=== PATIENT | female | born 1985 | race Caucasian/White ===

== ENCOUNTER 2018-03-31 09:32 | Emergency (ER) | payer OTHER ==
--- NOTE | 2018-03-31 10:03 | ED ---
Syncope/Near Syncope - HPI Summary HPI Summary: This pt is a 32 y/o female presenting to [facility] for a syncopal episode today. Pt reports she had woken up this morning and had a leg cramp that she was massaging. She notes that she got up from bed to get a drink and felt dizzy and lightheaded on her way to the kitchen. Pt states she opened the fridge, syncopized, and woke up next to the fridge a couple of seconds later on the floor. Denies blurry vision, neck pain, headache, chest pain, SOB after syncopal episode. She felt shaky and her hands were cold post syncopal episode. Currently notes she is anxious. Pt has syncopized once before when she was a teen. No PMHx. Denies tobacco or drug use. He admits to rare alcohol use. LMP: has nexplanon, has not had period in 1 year. - History Of Current Complaint Chief Complaint: EDSyncope Time Seen by Provider: 03/31/18 09:43 Hx Obtained From: Patient Onset/Duration: Sudden Onset, Resolved Timing: Seconds - a couple of seconds Activity At Onset: At Rest Aggravating Factor(s): Nothing Alleviating Factor(s): Spontaneous Resolution Associated Signs And Symptoms: Dizzy, Lightheadedness, Other - POS: shaky post syncope - Allergies/Home Medications Allergies/Adverse Reactions: Allergies Allergy/AdvReac Type Severity Reaction Status Date / Time No Known Allergies Allergy Verified 03/31/18 09:51 Home Medications: Home Medications Multivitamin with Minerals [One Daily Complete] 1 tab PO DAILY 03/31/18 [ History Confirmed 03/31/18] PMH/Surg Hx/FS Hx/Imm Hx Endocrine/Hematology History: Denies: Hx Diabetes Cardiovascular History: Denies: Hx Hypertension Neurological History: Denies: Hx Seizures - Surgical History Surgery Procedure, Year, and Place: wisdom teeth extraction. benign mass removed from breast Infectious Disease History: Yes Infectious Disease History: Denies: Traveled Outside the [place] in Last 30 Days - Family History Known Family History: Positive: Diabetes Family History: Mother with breast CA - Social History Alcohol Use: Rare Substance Use Type: Reports: None Smoking Status (MU): Never Smoked Tobacco Review of Systems Negative: Fever, Chills Negative: Blurred Vision Negative: Chest Pain Negative: Shortness Of Breath Negative: Other - neck pain Neurological: Other - POS: dizziness prior to syncope, shaky post syncope Positive: Syncope. Negative: Headache Positive: Anxious All Other Systems Reviewed And Are Negative: Yes Physical Exam - Summary Physical Exam Summary: VITAL SIGNS: Reviewed. GENERAL: Patient is a well-developed and nourished female who is lying comfortable in the stretcher. Patient is not in any acute respiratory distress. HEAD AND FACE: No signs of trauma. No ecchymosis, hematomas or skull depressions. No sinus tenderness. EYES: PERRLA, EOMI x 2, No injected conjunctiva, no nystagmus. EARS: Hearing grossly intact. Ear canals and tympanic membranes are within normal limits. MOUTH: Oropharynx within normal limits. NECK: Supple, trachea is midline, no adenopathy, no JVD, no carotid bruit, no c- spine tenderness, neck with full ROM. CHEST: Symmetric, no tenderness at palpation LUNGS: Clear to auscultation bilaterally. No wheezing or crackles. CVS: Regular rate and rhythm, S1 and S2 present, no murmurs or gallops appreciated. ABDOMEN: Soft, non-tender. No signs of distention. No rebound, no guarding, and no masses palpated. Bowel sounds are normal. EXTREMITIES: FROM in all major joints, no edema, no cyanosis or clubbing. NEURO: Alert and oriented x 3. No acute neurological deficits. Speech is normal and follows commands. SKIN: Dry and warm Triage Information Reviewed: Yes Vital Signs On Initial Exam: Initial Vitals Temp Pulse Resp BP Pulse Ox 97.9 F 97 18 145/83 100 03/31/18 09:39 03/31/18 09:39 03/31/18 09:39 03/31/18 09:39 03/31/18 09:39 Vital Signs Reviewed: Yes Diagnostics - Vital Signs Vital Signs Temp Pulse Resp BP Pulse Ox 03/31/18 10:00 77 16 100 03/31/18 09:51 87 13 129/90 100 03/31/18 09:50 94 129/90 03/31/18 09:49 86 17 133/82 100 03/31/18 09:48 88 133/82 03/31/18 09:42 89 145/83 100 03/31/18 09:39 97.9 F 97 18 145/83 100 - Laboratory Result Diagrams: 03/31/18 10:01 03/31/18 10:01 Lab Statement: Any lab studies that have been ordered have been reviewed, and results considered in the medical decision making process. - Radiology Chest XR Radiology Interpretation Completed By: Radiologist Summary of Radiographic Findings: IMPRESSION: No active cardiopulmonary disease. Dr. Tomlinson has reviewed this report. - EKG 10:30 Cardiac Rate: NL - at 82 bpm EKG Rhythm: Sinus Rhythm Summary of EKG Findings: No ST elevations. T wave inversion in leads III and aVF. Course/Dx Assessment/Plan: This pt is a 32 y/o female presenting to [facility] for a syncopal episode today. Pt reports she had woken up this morning and had a leg cramp that she was massaging. She notes that she got up from bed to get a drink and felt dizzy and lightheaded on her way to the kitchen. Pt states she opened the fridge, syncopized, and woke up next to the fridge a couple of seconds later on the floor. Denies blurry vision, neck pain, headache, chest pain, SOB after syncopal episode. She felt shaky and her hands were cold post syncopal episode. Currently notes she is anxious. Pt has syncopize once before when she was a teen. No PMHx. Denies tobacco or drug use. He admits to rare alcohol use. LMP : has nexplanon, has not had period in 1 year. Blood work without any significant abnormality except for glucose of 114, lactic acid is 2.5. Urinalysis is negative for UTI. Urine toxicology is also negative. Chest x-ray impression: No active cardiopulmonary disease. In the ED course the patient remains stable and she does have any complaints. EKG shows no acute pathology. Therefore I hydrated the patient only PO since she refuses an IV access. The patient doesnt have any signs of infection at this time. Repeat lactic acid is 1. I discussed all the findings and test results with the patient. Patient was instructed to return to the emergency room immediately if any of the symptoms return or worsens. Plan of care was discussed with the patient and understands and agrees. All questions were answered at patient satisfaction. There were no further complaints or concerns. Lung exam before discharge: CTA B/L. Good air exchange. No wheezing or crackles heard. CVS: S1 and S2 present. No murmurs appreciated. Patient is alert and oriented x 3. Patient is hemodynamically stable. Patient will be discharged home with follow up from her PCP in the next 2-3 days. - Diagnoses Provider Diagnoses: Syncope Discharge - Sign-Out/Discharge Documenting (check all that apply): Patient Departure - Discharge home - Discharge Plan Condition: Stable Disposition: HOME Patient Education Materials: Syncope (ED) Referrals: Tiara English MD [Primary Care Provider] - Additional Instructions: FOLLOW UP WITH YOUR PRIMARY CARE PROVIDER WITHIN ONE WEEK FOR HIGH BLOOD PRESSURE NOTED TODAY. RETURN TO THE ED FOR ANY NEW OR WORSENING SYMPTOMS. - Billing Disposition and Condition Condition: STABLE Disposition: Home - Attestation Statements Document Initiated by Berry: Yes Documenting Scribe: Odalys Guerrier Provider For Whom Berry is Documenting (Include Credential): Braulio Tomlinson MD Scribe Attestation: Odalys Deutsch, scribed for Braulio Tomlinson MD on 03/31/18 at 1248. Scribe Documentation Reviewed: Yes Provider Attestation: The documentation as recorded by the Odalys zurita accurately reflects the service I personally performed and the decisions made by Braulio cruz MD Status of Scribe Document: Viewed
[2018-03-31 10:11] LABS: ABS Basophils 0 10^3/ul (0-0.2); ABS Eosinophils 0.1 10^3/ul (0-0.6); ABS Monocytes 0.2 10^3/ul (0-0.8); ABS Neutrophils 2.1 10^3/ul (1.5-7.7); ABS Nucleated RBC 0 10^3/ul; Eosinophil % 2.1 %; Hematocrit 42 % (35-47); Lymphocyte % 28.4 %; Mean Corpuscular HGB Conc 33 g/dl (31-36); Mean Corpuscular Hemoglobin 29 pg (27-31); Mean Corpuscular Volume 87 fL (80-97); Nucleated Red Blood Cells % 0.1; Platelet Count 183 10^3/ul (150-450); Red Blood Count 4.86 10^6/ul (4.00-5.40); Red Cell Distribution Width 14 % (10.5-15); White Blood Count 3.4 10^3/ul (3.5-10.8)
[2018-03-31] MEDS ORDERED: NS 0.9% 1000 ML* 1,000 ML IV ONE (10:46)
[2018-03-31 11:09] LABS: Urine Appearance Cloudy; Urine Blood Negative (Negative); Urine Color Yellow; Urine Ketones Negative (Negative); Urine Protein Negative (Negative); Urine Specific Gravity 1.014 (1.010-1.030); Urine Urobilinogen Negative (Negative)
[2018-03-31 12:30] VITALS: BP 124/84
== END 2018-03-31 12:29 | disposition home or self-care (01) ==
LOC: ED 09:32
DX: R55 Syncope and collapse (principal); R42 Dizziness and giddiness
CPT/HCPCS: 36415; 71046; 80053; 80307; 80320; 81003; 82550; 83605; 83735; 83880; 84443; 84484; 85025; 85379; 93005; 99282; G0480